=== PATIENT | male | born 1975 | race Caucasian/White ===

== ENCOUNTER → 2016-08-07 | Outpatient (CLI) | payer OTHER ==
[~2016-08-07] MED LIST: ALLO100T PO; ALPR0.25 PO; GADOBUTROL 7.5 MMOL/7.5 ML VIAL IV ONE; LISI10TA2 PO; PRAV20TA2 PO; TRAM50TA PO
--- NOTE | 2016-08-08 08:43 | KCIC ---
MRI of the Brain/Pituitary Gland without and with Contrast 08/07/2016 Clinical History: Hypogonadism. Decreased testosterone. Technique: Unenhanced T1-weighted sagittal and axial and FLAIR, T2-weighted and diffusion-weighted axial images of the brain were obtained. Thin section T1-weighted sagittal and coronal images through the pituitary gland were obtained. After the intravenous administration of 11cc of Gadavist, enhanced T1-weighted axial and coronal images of the brain were obtained. Additionally thin section T1-weighted sagittal and coronal and dynamic enhanced T1-weighted coronal images through the pituitary gland were obtained. Findings: Comparison is made to an MRI of the brain dated 11/16/2012. The ventricles and sulci are within normal limits in size and configuration. No area of significant abnormal signal intensity is seen involving the brain parenchyma. No abnormal area of contrast enhancement is seen. No extra-axial fluid collection is noted. There is no MRI evidence of acute ischemia/infarction. The pituitary gland is within normal limits in size. 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 Normal enhancement of the pituitary gland is seen. There is no MRI evidence of pituitary micro or macroadenoma. The paranasal sinuses are essentially clear. Normal flow voids are seen within the major vascular structures surrounding the brain parenchyma. Impression: There is no MRI evidence of a pituitary micro or macroadenoma. Electronically signed by: Pratik Orellana MD (08/08/2016 8:40 AM)
== END | disposition home or self-care (01) ==
LOC: KCIC MRI 14:43
DX: E29.1 Testicular hypofunction (principal)
CPT/HCPCS: 70553; A9585